=== PATIENT | female | born 1965 | race Caucasian/White ===

== ENCOUNTER → 2017-06-19 | Outpatient (CLI) | payer BC ==
[~2017-06-19] MED LIST: ADVAIR HFA 230M12 GM INH; CLEOCIN HCL150 MG PO; COMBIVENT INH; HYDROCODONE-AP1 EAC6 PO; LIPITOR 20 MG T20 M1 PO; LISINOPRIL20 MG PO; NORCO 5-325 TA1 EACH PO; XARELTO15 MG PO; XARELTO20 MG PO
== END ==
LOC: RAD 10:47
DX: M81.0 Age-related osteoporosis without current pathological fracture (principal); M47.894 Other spondylosis, thoracic region; Z78.0 Asymptomatic menopausal state

== ENCOUNTER → 2017-06-27 | Outpatient (CLI) | payer BC | LOC: ULTRA 06:58 | DX: K80.81 Other cholelithiasis with obstruction (principal) ==

== ENCOUNTER 2017-07-05 05:53 | Inpatient (IN) | payer BC ==
[2017-07-05] VITALS (7 sets, daily range): BP systolic 93–146; BP diastolic 48–87
[~2017-07-05] VITALS: Ht 152.4 cm; Wt 78.9 kg
--- NOTE | ~2017-07-05 | S ---
[facility] [place] [address] SURGICAL PATH RPT PROCEDURE Name: ANNETTE GLYNN Room #: 405-P DIS IN M.R.#: [id number] Admission: 07/05/17 Date of : 67 Discharge: 07/07/17 Report #: [id number] Path Case #: [id number] PATHOLOGY REPORT COLLECTION DATE: 07/05/2017 RECEIVED DATE: 07/05/2017 SUBMITTING PHYS: Dr. Gianluca Ceja OTHER PHYS: Dr. Rasheed Alicia SPECIMEN(S) RECEIVED: A.Gallbladder B.Common bile duct with stone * * * * * * * * * * * * FINAL DIAGNOSIS: A. "Gallbladder," cholecystectomy: - Chronic cholecystitis. - Cholelithiasis. B. "Common bile duct with stone," removal: - Gallbladder calculus (gross examination only). (CLW:; 07/09/2017) PATHOLOGIST: Lois Dobbs M.D. REPORT ELECTRONICALLY SIGNED BY: Lois Dobbs M.D. DATE/TIME: 07/09/2017 15:56 * * * * * * * * * * * * GROSS PATHOLOGY: A. Received in formalin labeled "Annette Glynn, gallbladder," is a 4.6 x 1.5 x 0.8 cm, previously opened gallbladder with pink-nice and smooth serosal surfaces. Opening the gallbladder reveals a green mucosa and an average wall thickness of 0.1 cm. Multiple black and fractured calculi are present measuring 1.9 x 1.4 x 0.5 cm in aggregate dimensions and no masses are noted grossly. Compliance Representative sections from the body and fundus are submitted along with the proximal margin in cassette A1. B. The specimen is received in formalin, labeled "Annette Glynn, common bile duct stone," and consists of a single brown calculus measuring 0.6 x 0.5 x 0.3 cm. Gross photos are taken and no sections are submitted. (SDY; 07/06/2017) CLINICAL HISTORY: Gallstones [facility] [place] [address] SURGICAL PATH RPT PROCEDURE Name: ANNETTE GLYNN Room #: 405-[facility] IN M.R.#: [id number] Admission: 07/05/17 Date of : 67 Discharge: 07/07/17 Report #: [id number] Path Case #: [id number] INITIAL CPT CODE(S): A; 01105, 20972 Professional services performed by [facility] at [address], [place] [address] Technical services performed by [facility] at [address] [place] [address], [facility] [address] [address]. [facility] [address] [place] [address] PHONE: [phone] DIRECTOR: Kumar Wong M.D. * * * END OF REPORT * * *
--- NOTE | ~2017-07-05 | EKG ---
[address] [place] [address] ELECTROCARDIOGRAM REPORT Name: ANNETTE GLYNN Room #: 405-P [facility].#: [id number] Admission: 07/05/17 Attend Phys: Gianluca Ceja MD Discharge: Date of : 67 Report #: [id number] THIS REPORT FOR: //name// [facility] Test Date: 2017-07-05 Test Time: 11:08:44 Pat Name: ANNETTE GLYNN Department: Room: 150 1 Gender: F Wafer Fab Technician: ALEIDA : 1965 Requested By: Gianluca Ceja Order Number: [id number] MD: Christopher Harrison Measurements Intervals Points Rate: 65 P: 93 CT: 176 QRS: 30 QRSD: 94 T: 64 QT: 412 QTc: 429 Interpretive Statements Sinus rhythm Abnormal R-wave progression, early transition Baseline wander in lead(s) V3 No previous ECG available for comparison Electronically Signed On 07-06-2017 8:18:48 PROOF LOAD MECHANIC by Christopher Harrison [email or web address] <ELECTRONICALLY SIGNED> By: Christopher Harrison MD, [facility] 07/06/1718 1108 07 Christopher Harrison MD, FACC /EPI
--- NOTE | ~2017-07-05 | O ---
[facility] [place] [address] OPERATIVE REPORT Name: ANNETTE GLYNN Room #: 405-P [facility] IN M.R.#: [id number] Admission: 07/05/17 Attend Phys: Gianluca Ceja MD Discharge: 07/07/17 Date of : 67 Report #: [id number] THIS REPORT FOR: //name// CC: Gianluca Alicia PREOPERATIVE DIAGNOSES: Cholecystitis with cholelithiasis. POSTOPERATIVE DIAGNOSES: Cholecystitis with cholelithiasis and a common bile duct stone that measured about 1.2 cm. Stone was also found in the cystic duct. PROCEDURES PERFORMED: 1. Laparoscopic cholecystectomy with cholangiogram. 2. Common bile duct exploration with removal of common duct stone. 3. T-tube cholangiogram. 4. Lysis of adhesions. SURGEON: Gianluca Ceja M.D. ANESTHESIA: General anesthesia. COMPLICATIONS: None. ESTIMATED BLOOD LOSS: 5 mL. FINDINGS: There are multiple stones in the cystic duct that were evacuated. On intraoperative cholangiogram through the cystic duct, a common duct stone was found. This was at the bifurcation. The stone was removed through laparoscopic common duct exploration with the T-tube cholangiogram at the end of the exploration did not show any continued defects. The stone was extracted. DESCRIPTION OF PROCEDURE: With the patient under anesthesia, abdomen was prepped and draped in sterile fashion. IV antibiotic was administered. Abdomen prepped and draped in sterile fashion. Timeout was performed. The patient has had multiple surgeries. With the patient's abdomen prepped and draped in sterile fashion, a cutdown incision was made in the right abdomen about an inch or so right of the umbilicus and slightly superior. The patient has had multiple scars from prior surgery, including the transverse right upper quadrant scar and a left paramedian scar. The cutdown was performed and the fascia was identified. The fascia of the anterior rectus sheath was opened. Muscle was spread. The posterior sheath was then identified. A 0 Vicryl suture was placed on the anterior sheath and then on the posterior sheath. The posterior sheath was opened under visualization. The abdominal cavity was free under this. An Origin balloon trocar was then placed. The balloon was inflated keeping the trocar in. CO2 was then placed. The patient did have quite a bit of adhesions to the abdominal wall, cephalad and also to the left of this area. The adhesion of small bowel to the wall was thin and easily dissected free. In the right [address] [address] OPERATIVE REPORT Name: ANNETTE GLYNN Room #: 405-P [facility] IN M.R.#: [id number] Admission: 07/05/17 Attend Phys: Gianluca Ceja MD Discharge: 07/07/17 Date of : 67 Report #: [id number] upper quadrant a scar that was transversely oriented. The transverse colon was fairly densely stuck to this. Some of these were also fatty adhesions. Careful dissection was carried out. Two 5-mm trocars were placed in the right upper abdomen. The more medial 5-mm trocar was placed lower than the typical placement because of the prior scar and the adhesions in that location. Using these 2 instruments, the adhesions were taken down. Cautery was used to divide the adhesions and low scissor and occasional sharp scissor dissection without cautery was performed. Colon was able to be brought down to the degree that the medial 5-mm trocar was placed. Gallbladder was then identified and noted to be contracted as the ultrasound showed. When I followed the gallbladder, the adhesions were taken away from this and when the gallbladder was followed down about a couple of inches, it tapered. I was not sure if this was still gallbladder, but has suspicious feeling that this was probably cystic duct. This contained multiple stones in the cystic duct. Cystic duct was then isolated. It sure enough was the cystic duct. The cystic duct was clipped at the junction to the gallbladder. Opening was made in the cystic duct and multiple helga stones along with several flaky stones and sometime well-formed stones were extracted from the common duct. Most of these were able to be suctioned out and some of them were pulled through the 5-mm trocar. Once the cystic duct was clear, there was bile coming through. Cholangiogram catheter was then placed with a clip. Fluoroscopic cholangiogram was obtained. Common bile duct filled out well. The cholangiogram catheter identified the cystic duct. There was about a 1.2 cm stone at the bifurcation of the hepatic duct. The distal flow was normal. I think the stone was also able to be palpable in this common duct at some point. The cholangiogram catheter was removed. The proximal cystic duct was then clipped x 1 and then divided. This cystic duct was kept together with the gallbladder to help the distraction and show the common duct. We decided to go ahead and explore the common duct. The common duct was isolated and the fat tissue was taken from over the surface of the common duct. The common duct was opened with sharp scissor dissection. Bile came out. Irrigation was then applied to the proximal and also distal opening and I flushed the upper part of stone. A fairly large-sized well-formed stone actually came out. This was placed over the omentum so I could keep an eye on this. The biliary Tawana catheter was then placed. Tawana catheter was used to sweep the upper duct, also through the distal common duct and through the ampulla. No further stone was found. A #14-Omani T-tube was then placed. The T-tube was trimmed to fit. The T-tube was then placed into the common duct exploration site. The T-tube was swept downward and the upper part of the common duct that was above the T-tube was then sewn together with 4-0 PDS with 3 separate sutures. This created a good seal around the T-tube. I did not see any bile leak out. The T-tube was brought out through the medial 5-mm trocar. Erwin tree adapter was placed on this. Fluoroscopic T-tube cholangiogram was obtained. Common bile duct filled out well. I did not see any further defect consistent with extraction of the stone. The cystic duct was then clipped with 2 more clips and then divided. The clips did go all the way across the cystic duct. The artery was then found adjacent. This was also clipped x [address] [address] OPERATIVE REPORT Name: ANNETTE GLYNN Room #: 405-P [facility] IN M.R.#: [id number] Admission: 07/05/17 Attend Phys: Gianluca Ceja MD Discharge: 07/07/17 Date of : 67 Report #: [id number] proximally and 1 distally and then divided. The gallbladder was quite shrunken. This is easily removed. The stone was extracted and then was removed from the common duct. They did come out in pieces and it was able to be crushed. The gallbladder was then removed through the Origin balloon trocar without difficulty. Irrigation was performed. Liver bed was checked and hemostasis was obtained. A #19 Jonathan drain was then placed through the lateral 5-mm trocar, brought out through the lateral 5 mm trocar. was placed in Morison's pouch. The medial trocar and the Origin balloon trocar were then removed. The T-tube and the REJI drain were tied with a 2-0 silk suture. The fascia defect at the cutdown site was closed with 0 PDS [id number] x 2 in the posterior sheath and then the anterior sheath with 0 PDS [id number] x 2. Skin was irrigated. Skin was then closed with 5-0 PDS. Steri-Strip and Band-Aids applied. A 4 x 4 was placed around the T-tube and the drain site and a medium Op-Site was used to cover and seal both the tubes in place. The patient tolerated the procedure well and was taken to recovery room. <ELECTRONICALLY SIGNED> By: Gianluca Ceja MD 07/27/17 1426 [id number] 2318 Gianluca Ceja MD /nt
[~2017-07-05 05:53] MED LIST changes: -ADVAIR HFA 230M12 GM INH; -CLEOCIN HCL150 MG PO; -COMBIVENT INH; -HYDROCODONE-AP1 EAC6 PO; -NORCO 5-325 TA1 EACH PO; -XARELTO15 MG PO; -XARELTO20 MG PO
[2017-07-06] VITALS: BP 120/50
[2017-07-06 04:00] VITALS: BP 114/75
[2017-07-06 06:35] LABS: ALBUMIN 2.8 g/dL (3.4-5.0); DIRECT BILIRUBIN < 0.1 mg/dL (<0.1-0.3); SGOT 28 U/L (15-37); SGPT 33 U/L (30-65); TOTAL BILIRUBIN 0.4 mg/dL (<0.1-1.0)
[2017-07-06 07:52] VITALS: BP 127/65
[2017-07-06 16:03] VITALS: BP 126/72
[2017-07-06 20:00] VITALS: BP 127/53
[2017-07-07 04:00] VITALS: BP 150/70
[2017-07-07 09:39] VITALS: BP 159/74
[2017-07-07] MEDS ORDERED: NORCO 5-325 TA1 EACH PO (11:35)
[2017-07-07 13:52] VITALS: BP 159/74
[2017-10-29] MEDS ORDERED: HYDROCODONE-AP1 EAC6 PO (15:52)
[2018-01-30] MEDS ORDERED: XARELTO15 MG PO (12:18)
[2018-02-19] MEDS ORDERED: XARELTO20 MG PO (13:07)
== END 2017-07-07 15:10 | disposition home or self-care (01) | DRG 419 ==
LOC: TBA 05:53 → OR 05:53 → TBA 05:54 → OR 08:53 → 4N 15:08 → TBA 15:55 → 4N 15:55 → OR 15:56 → 4N 15:56
PROVIDERS: Surgery
PROC: 0FC94ZZ Extirpation of Matter from Common Bile Duct, Percutaneous Endoscopic Approach (ICD-10-PCS; principal; 2017-07-05)
PROC: 0FT44ZZ Resection of Gallbladder, Percutaneous Endoscopic Approach (ICD-10-PCS; principal; 2017-07-05)
PROC: BF131ZZ Fluoroscopy of Gallbladder and Bile Ducts using Low Osmolar Contrast (ICD-10-PCS; principal; 2017-07-05)
DX: K80.60 Calculus of gallbladder and bile duct with cholecystitis, unspecified, without obstruction (principal)
CPT/HCPCS: 10790; 50010; 50101; 50411; 50555; 50558; 51165; 51297; 51489; 51687; 53065; 53307; 53310; 55245; 55317; 56462; 56525; 56526; 62110; 62900; 70005

== ENCOUNTER → 2017-08-07 | Outpatient (CLI) | payer BC ==
[~2017-08-07] VITALS: Ht 152.4 cm; Wt 77.1 kg
[~2017-08-07] MED LIST changes: +NORCO 5-325 TA1 EACH PO
[2017-08-07 13:26] VITALS: BP 133/69
== END | disposition home or self-care (01) ==
LOC: SPEC 11:47
DX: Z48.03 Encounter for change or removal of drains (principal)

== ENCOUNTER → 2017-09-04 | Outpatient (CLI) | payer BC | LOC: ULTRA 13:05 | DX: R10.11 Right upper quadrant pain (principal); Z90.49 Acquired absence of other specified parts of digestive tract ==

== ENCOUNTER 2017-10-28 12:52 | Emergency (ER) | payer BC ==
[~2017-10-28] VITALS: Ht 149.9 cm; Wt 74.8 kg
[2017-10-28] MEDS ORDERED: ADVAIR HFA 230M12 GM INH (13:14)
[2017-10-28] MEDS ORDERED: COMBIVENT INH (13:14)
[2017-10-28 13:36] LABS: ABSOLUTE NEUTROPHILS 7.5 thou/uL (1.4-8.2); BASOPHILS 0.4 % (0.0-2.0); EOSINOPHILS 1.6 % (0.0-3.0); HEMATOCRIT 40.1 % (37.0-47.0); HEMOGLOBIN 13.3 gm/dL (12.0-15.0); LYMPHOCYTES 14.3 % (24.0-44.0); MCH 28.2 pg (26.0-34.0); MCHC 33.2 g/dL (28.0-37.0); MCV 84.8 fL (80.0-100.0); MONOCYTES 8.5 % (1.0-8.0); PLATELET COUNT 294 thou/uL (150-400); POLYS 75.2 % (36.0-66.0); RBC 4.73 mil/uL (4.20-5.00); RDW 15.4 % (10.5-14.5)
[2017-10-28 14:56] LABS: ALBUMIN 2.9 g/dL (3.4-5.0); ANION GAP 6 mmol/L (7-16); BUN 5 mg/dL (7-18); CALCIUM 8.8 mg/dL (8.5-10.1); CHLORIDE 106 mmol/L (98-107); CO2 27 mmol/L (21-32); CREATININE 0.7 mg/dL (0.6-1.0); GLUCOSE 95 mg/dL (74-106); LIPASE 49 U/L (73-393); POTASSIUM 3.6 mmol/L (3.5-5.1); SGOT 14 U/L (15-37); SGPT 17 U/L (30-65); SODIUM 139 mmol/L (136-145); TOTAL BILIRUBIN 0.5 mg/dL (<0.1-1.0); TOTAL PROTEIN 6.6 g/dL (6.4-8.2); TROPONIN-I < 0.04 ng/mL (<0.06)
[2017-10-28] MEDS ORDERED: CLEOCIN HCL150 MG PO (16:11)
[2017-10-29] MEDS ORDERED: HYDROCODONE-AP1 EAC6 PO (15:52)
== END 2017-10-28 16:51 | disposition home or self-care (01) ==
LOC: ER 12:52
PROVIDERS: Emergency Medicine
DX: L03.311 Cellulitis of abdominal wall (principal); R11.0 Nausea; I10 Essential (primary) hypertension; E78.00 Pure hypercholesterolemia, unspecified; F17.210 Nicotine dependence, cigarettes, uncomplicated; Z90.89 Acquired absence of other organs; Z88.0 Allergy status to penicillin

== ENCOUNTER 2017-10-30 05:29 | Inpatient (IN) | payer BC ==
[~2017-10-30] VITALS: Ht 149.9 cm; Wt 67.1 kg
--- NOTE | ~2017-10-30 | O ---
[facility] [place] [address] OPERATIVE REPORT Name: ANNETTE GLYNN Room #: 227-P [facility] IN M.R.#: [id number] Admission: 10/30/17 Attend Phys: Gianluca Ceja MD Discharge: 11/02/17 Date of : 67 Report #: [id number] THIS REPORT FOR: //name// CC: Gianluca Alicia MD DATE OF SERVICE: 10/30/2017 PREOPERATIVE DIAGNOSIS: Abscess in the right upper quadrant along an old incision. POSTOPERATIVE DIAGNOSIS: Finding consistent with a colocutaneous fistula. PROCEDURES PERFORMED: Fistulogram, wound exploration, closure of colocutaneous fistula. ANESTHESIA: General. SURGEON: Gianluca Ceja MD. COMPLICATIONS: None. ESTIMATED BLOOD LOSS: 5 mL. DESCRIPTION OF PROCEDURE: With the abdomen prepped with Betadine, timeout was performed. The patient did receive preoperative IV antibiotic of vancomycin and also Flagyl. The patient had a wound that opened up during the night and medial to this area, there is also a centimeter half of necrotic skin. The output looks stool like. The interesting thing is that the patient underwent laparoscopic cholecystectomy now almost 4 months ago. There is scar in the right upper quadrant, which did have the transverse colon stuck on top of it. The adhesions were taken down. At that point, no harm was felt to have happened to the colon. It is interesting that now the patient presents with this infection so far out. The abdomen was prepped and draped in sterile fashion. A 14 gauge Jelco catheter was placed through the small opening. Dye was injected. Despite using multiple angles, I do not see a travel into the colon. There is a subcutaneous pocket that is about 3 cm in size. There was quite a bit of contrast that seeped down through the necrotic skin and also traveling along the Jelco catheter. The fistulogram was then abandoned. Ellipse was then cut around the opening that is 3 mm and then also the necrotic skin. The culture was obtained. Again, the drainage is foul smelling and looked stool like. The necrotic wall along the base along the sides was trimmed off and when I looked at the base of this opening, I could see mucosa which looks like it is from the colon. Hemostat was able to be put in through this and quite a bit of the hemostat went in. This is consistent with colocutaneous fistula. I am not [facility] [address] [place] [address] OPERATIVE REPORT Name: ANNETTE GLYNN Room #: 227-P [facility] IN M.R.#: [id number] Admission: 10/30/17 Attend Phys: Gianluca Ceja MD Discharge: 11/02/17 Date of : 67 Report #: [id number] quite sure what the etiology or why it formed, suspect there may have been issue with the colon during the laparoscopic lysis of adhesion, but I do not know why it took so long to manifest. The difficulty with treating of this is that this probably will close since it is a very low output. I decided to try and close what I can see as a mucosa. This was closed with 4-0 PDS in interrupted fashion x 3. The opening in the mucosa looks like it is about a centimeter in size. This came together well and with gentle hemostat, I did not find any weakness or opening. Over this, Tisseel was mixed and placed over this closure. Again, I am not sure if this is going to hold. The other option is to put a colostomy bag over this and let it drain. The possibility of finding this was discussed with the patient prior to procedure. I think keeping her on clear liquid diet and IV fluids for a while hopefully will close off. The closure and Tisseel hopefully will work also. A dry light gauze was placed over the opening, 4 x 4 tape was applied. The patient tolerated the procedure well and was taken to the recovery room. The patient will be admitted for IV antibiotic treatment since there is some surrounding cellulitis, but the wound looked clean at the end of the procedure. The patient tolerated procedure well. <ELECTRONICALLY SIGNED> By: Gianluca Ceja MD 11/04/17 1105 2225 Gianluca Ceja MD /nt
[~2017-10-30 05:29] MED LIST changes: +ADVAIR HFA 230M12 GM INH; +CLEOCIN HCL150 MG PO; +COMBIVENT INH; +HYDROCODONE-AP1 EAC6 PO
[2017-10-30 12:12] VITALS: BP 95/50
[2017-10-30 18:45] VITALS: BP 108/62
[2017-10-31 03:55] VITALS: BP 119/58
[2017-10-31 08:00] VITALS: BP 95/59
[2017-10-31 16:00] VITALS: BP 112/67
[2017-10-31 17:00] VITALS: BP 113/58
[2017-10-31 19:57] VITALS: BP 133/68
[2017-11-01 07:24] LABS: HEMATOCRIT 36.1 % (37.0-47.0); HEMOGLOBIN 12.1 gm/dL (12.0-15.0); MCHC 33.4 g/dL (28.0-37.0); MCV 83.8 fL (80.0-100.0); RBC 4.31 mil/uL (4.20-5.00); RDW 14.9 % (10.5-14.5); WBC 6.7 thou/uL (4.0-11.0)
[2017-11-01 07:42] LABS: CREATININE 0.7 mg/dL (0.6-1.0)
[2017-11-01 08:45] VITALS: BP 118/65
[2017-11-01 20:09] VITALS: BP 129/75
[2017-11-02 08:52] VITALS: BP 144/79
[2017-11-02 12:24] VITALS: BP 144/79
== END 2017-11-02 17:49 | disposition home health service (06) | DRG 358 ==
LOC: OR 05:29 → TBA 05:29 → PRE 11:34 → EDSTATUS 15:34 → OR 15:41 → 4W 18:32 → OR 18:33 → SICU 10-31 16:41 → ENTRNSPT 11-02 17:31 → SICU 11-02 17:49
PROVIDERS: Surgery
PROC: 3E0H3GC Introduction of Other Therapeutic Substance into Lower GI, Percutaneous Approach (ICD-10-PCS; principal; 2017-10-30)
PROC: 0W9F0ZZ Drainage of Abdominal Wall, Open Approach (ICD-10-PCS; principal; 2017-10-30)
DX: K63.2 Fistula of intestine (principal); J44.9 Chronic obstructive pulmonary disease, unspecified; I10 Essential (primary) hypertension; E78.5 Hyperlipidemia, unspecified; Z79.899 Other long term (current) drug therapy; Z88.0 Allergy status to penicillin; Z87.891 Personal history of nicotine dependence
CPT/HCPCS: 10047; 15002; 50010; 50101; 50386; 50403; 51436; 56525; 56527; 62110; 62900; 70005

== ENCOUNTER 2017-12-05 14:50 | Inpatient (IN) | payer BC ==
[2017-12-05] VITALS (7 sets, daily range): BP systolic 94–127; BP diastolic 42–73
[~2017-12-05] VITALS: Ht 152.4 cm; Wt 68.4 kg
--- NOTE | ~2017-12-05 | HC ---
[facility] [place] [address] CONSULTATION Name: ANNETTE GLYNN Room #: 360-P ADM IN M.R.#: [id number] Admission: 12/05/17 Attend Phys: Perfecto Mcpherson Discharge: Date of : 67 Report #: [id number] THIS REPORT FOR: //name// CC: Perfecto Alicia DATE OF SERVICE: 12/06/2017 REASON FOR CONSULTATION: I was asked to evaluate concerning colocutaneous fistula management and antibiotic therapy. HISTORY OF PRESENT ILLNESS: The patient was a 52-year-old who underwent laparoscopic cholecystectomy on 07/05 for cholecystitis and cholelithiasis with a common bile duct stone. It was evident that she had significant amount of adhesions at the time of surgery. These were taken down with no intraoperative complications. She had a T-tube placed. This was ultimately removed. In first week of October, she started having pain in her right upper quadrant and an area of erythema and spontaneous drainage occurred. She was taken to the operating room by Dr. Ceja who found a colocutaneous fistula that was in the same area of her previous incision from when she was a child. That incision was to manipulate a displaced kidney. Attempted closure of colocutaneous fistula was performed. This failed, and she began to drain again from the site. She was placed on TPN. Over the last several days, she has noticed increased discomfort along with fever and chills. She has had mild discomfort in the right upper quadrant. She has had normal stools. She has been receiving TPN in the right upper extremity PICC. On presentation to the Emergency Room, temperature was 39.4, hemodynamically was stable. The pulse was 109 and blood pressure is 99/59. She was hospitalized, placed on IV antibiotic therapy. Subsequently, her PICC line has been removed. Plan is for further surgical intervention. PAST MEDICAL HISTORY: Hypertension, hyperlipidemia, Hirschsprung disease with megacolon: She had a colostomy with a subsequent takedown as an infant. 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 Underlying COPD, on oxygen 2 liters. Smoker of cigarettes. She had previous oral surgery with extractions, has upper denture, previous cholecystectomy. ALLERGIES: PENICILLIN. MEDICATIONS: Atorvastatin, lisinopril, TPN. FAMILY HISTORY: Noncontributory. SOCIAL HISTORY: Smoker of cigarettes. No significant alcohol intake. No HIV risk factors. REVIEW OF SYSTEMS: [facility] [address] [place] [address] CONSULTATION Name: ANNETTE GLYNN Room #: 360-P [facility] IN .R.#: [id number] Admission: 12/05/17 Attend Phys: Perfecto Mcpherson Discharge: Date of : 67 Report #: [id number] GENERAL: The patient has lost approximately 20 pounds. EYES: Negative. HEENT: Negative other than dentures. PULMONARY: Negative. CARDIAC: Negative for cough or sputum production. No dyspnea on exertion. CARDIOVASCULAR: Negative. GASTROINTESTINAL: As above. GENITOURINARY: Negative. MUSCULOSKELETAL: Negative. SKIN: Negative. NEUROLOGIC: Negative. PHYSICAL EXAMINATION: VITAL SIGNS: Afebrile and hemodynamically stable. Her maximum temperature is 103.5 degrees last evening. SKIN: She has excoriations to her forehead. LYMPH: Unremarkable. GENERAL: She was obese. She was alert and cooperative and pleasant, in no distress. HEENT: Eyes unremarkable. Mouth, dentures, otherwise unremarkable. NECK: Supple, with no thyromegaly or mass. Pulses were normal. LUNGS: Clear, without adventitial sounds. HEART: Regular, without murmur, gallop or rub. ABDOMEN: Soft. She had a fistula evident in the right upper quadrant. Mild surrounding erythema. Mild tenderness. There is fullness in this region. She had several scars throughout her abdomen. PELVIC: External genitalia unremarkable. EXTREMITIES: Unremarkable. NEUROLOGIC: Nonfocal. LABORATORY STUDIES: Sodium 133, potassium 3.7, bicarbonate 22, creatinine 0.8, lipase of 69. Liver function test normal. Albumin 2.8. Hemoglobin 11.3, WBC 8.2, platelet count 168,000. Urinalysis unremarkable. Blood culture /2 showing gram-positive cocci, drainage from the abdominal tract is currently pending. Previous culture from her abdominal wound from 10/30/2017 showed E. coli, Klebsiella and Bacteroides. The E. coli and Klebsiella resistant to ampicillin. The E. coli was also resistant to tetracycline. CT scan of the abdomen and pelvis showed evidence of increased edema around the fistula site in the upper quadrant. There is question whether there is a fluid collection also inferior to this. Images were reviewed. 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 This failed initial closure procedure. Now has increased swelling in the region of decreased fistula output. Also, has high fever. Whether it is related to this or to [facility] [address] [place] [address] CONSULTATION Name: ANNETTE GLYNN Room #: 360-P [facility] IN M.R.#: [id number] Admission: 12/05/17 Attend Phys: Perfecto Mcpherson Discharge: Date of : 67 Report #: [id number] venous access infection that was being used for TPN is not yet determined. RECOMMENDATION: We will continue IV antibiotic therapy with meropenem and vancomycin. We will await culture results from blood and wound. THE PATIENT HAS AN INTOLERANCE TO PENICILLIN. To proceed for surgical intervention with a diverting ileostomy and debridement of this area. Hopefully, with this, she will be able to heal this region. I have discussed the case with Dr. Ceja who will be performing the surgical intervention. We will remove her PICC catheter and await blood culture results. Continue with peripheral IV access at this time. Duration of her IV antibiotic therapy will be dependent upon findings at the time of surgery. We will follow her CBC and chemistry. <ELECTRONICALLY SIGNED> By: Doyle Marcos MD 12/07/17 1135 1244 1330 Doyle Marcos MD /nt
--- NOTE | ~2017-12-05 | O ---
[facility] [place] [address] OPERATIVE REPORT Name: ANNETTE GLYNN Room #: 360-P ADM IN M.R.#: [id number] Admission: 12/05/17 Attend Phys: Perfecto Mcpherson Discharge: Date of : 67 Report #: [id number] THIS REPORT FOR: //name// CC: Perfecto Alicia DATE OF SERVICE: 12/08/2017 PREOPERATIVE DIAGNOSIS: Persistent colocutaneous fistula. POSTOPERATIVE DIAGNOSIS: Persistent colocutaneous fistula. PROCEDURE PERFORMED: Diagnostic laparoscopy, laparoscopic assisted ileostomy. COMPLICATIONS: None. ESTIMATED BLOOD LOSS: 5 mL. SURGEON: Gianluca Ceja MD. COMPLICATIONS: None. DESCRIPTION OF PROCEDURE: With the patient under general anesthesia, abdomen was prepped and draped in sterile fashion with Betadine. A 4 x 4 and Op-Site was placed over the fistula site. The patient had been premarked by the ostomy nurse. This actually was directly over her umbilicus, which is shifted over to the right. A small incision was made just slightly lateral to the marking. An ellipse of the skin was then excised since it is going to be a loop ileostomy. Fat was then dissected free and removed. The fascia was identified. Fascia was then opened under visualization. The anterior fascia was opened, 0 Vicryl suture placed on it. The muscle was spread. The posterior fascia was then identified and opened. Again, stay suture of 0 Vicryl placed on the posterior fascia. I can see through the peritoneum that this was free space. A 12-mm trocar with a balloon on it was placed. Abdominal cavity was insufflated by CO2. A 5-mm trocar was placed in the lateral right abdomen. I can see the side of the right upper quadrant, but it is covered by omental adhesions. There are small bowel adhesions also scattered. The area where I entered is free. It takes more dissection to get to the actual colon site. The previous gallbladder bed has some adhesions and looks fine. The cecum was identified. The appendix was visualized. The terminal ileum was then followed. The TI is attached to the right lower quadrant, but about 6-8 inches proximal, the bowel is free. This bowel is identified. A blunt grasper is placed on the omentum of this bowel. This was able to be pulled over to the 12-mm trocar. A 5-mm camera was then placed. A 5-mm port allowed the bowel to be brought out through the 12-mm trocar site. Once I got it through the wall, the [place] was used to grab this bowel. I was then able to, with the stay sutures, open the anterior rectus [address] [address] OPERATIVE REPORT Name: ANNETTE GLYNN Room #: 360-P ADM IN M.R.#: [id number] Admission: 12/05/17 Attend Phys: Perfecto Mcpherson Discharge: Date of : 67 Report #: [id number] sheath up and down in a cruciate manner superiorly and also inferiorly. Then, I was able to use the posterior stay suture and opened up the posterior sheath. Once this was done, the patient had adequate room for the ileostomy. The ostomy came up to the surface easily without any tension. The mesentery was then freed from the bowel adjacent to the bowel. Cautery was used for hemostasis. A butterfly type ostomy bridge was placed under the loop ileostomy. The bridge was sewn with a 3-0 nylon suture. The OpSite was then taken off the fistula area. I did open this and allow further drainage. There is still some stool material here. A suction was placed inside this area and I believe after about 1.5 cm goes into the colon, I believe. This was irrigated and cleaned out. After suctioning, then there is no further output from this. The skin was then protected by OpSite surrounding the opening, 4 x 4 wet to dry was packed into the wound and then, a dry gauze was placed over this and taped in place. The ileostomy was then matured. I matured it towards the proximal end by making about 1.5 cm incision in the bowel wall. Cautery used for hemostasis. The 4-0 Vicryl was then used to sow the mucosa open. Ostomy bag was placed over this. The patient tolerated the procedure well. She was taken to recovery room in good condition. <ELECTRONICALLY SIGNED> By: Gianluca Ceja MD 12/11/17 1624 1143 1319 Gianluca Ceja MD /nt
[2017-12-05 15:52] LABS: ABSOLUTE NEUTROPHILS 7.6 thou/uL (1.4-8.2); BASOPHILS 0.5 % (0.0-2.0); EOSINOPHILS 0.2 % (0.0-3.0); HEMATOCRIT 37.5 % (37.0-47.0); HEMOGLOBIN 12.8 gm/dL (12.0-15.0); LYMPHOCYTES 7.5 % (24.0-44.0); MCH 28.1 pg (26.0-34.0); MCV 82.8 fL (80.0-100.0); MONOCYTES 5.7 % (1.0-8.0); PLATELET COUNT 197 thou/uL (150-400); POLYS 86.1 % (36.0-66.0); RBC 4.53 mil/uL (4.20-5.00); RDW 14.3 % (10.5-14.5); WBC 8.8 thou/uL (4.0-11.0)
[2017-12-05 16:04] LABS: CALCIUM 8.7 mg/dL (8.5-10.1)
[2017-12-05 16:09] LABS: ALBUMIN 2.8 g/dL (3.4-5.0); TOTAL BILIRUBIN 0.3 mg/dL (<0.1-1.0)
[2017-12-05 16:31] LABS: URINE BILIRUBIN NEGATIVE (Negative); URINE BLOOD NEGATIVE (Negative); URINE CLARITY CLEAR; URINE COLOR YELLOW; URINE GLUCOSE-RANDOM* NEGATIVE (Negative); URINE KETONES NEGATIVE (Negative); URINE LEUKOCYTES-REFLEX NEGATIVE (Negative); URINE NITRITE-REFLEX NEGATIVE (Negative); URINE PROTEIN (DIPSTICK) NEGATIVE (Negative); URINE UROBILINOGEN 0.2 E.U./dl (0.2-1.0)
[2017-12-06 03:42] VITALS: BP 118/78
[2017-12-06 08:22] VITALS: BP 88/51
[2017-12-06 09:07] LABS: CALCIUM 7.9 mg/dL (8.5-10.1); CREATININE 0.8 mg/dL (0.6-1.0); POTASSIUM 3.7 mmol/L (3.5-5.1)
[2017-12-06 09:10] LABS: MAGNESIUM 1.3 mg/dL (1.8-2.4)
[2017-12-06 09:19] LABS: HEMATOCRIT 33.4 % (37.0-47.0); HEMOGLOBIN 11.3 gm/dL (12.0-15.0); MCH 28.2 pg (26.0-34.0); MCHC 33.8 g/dL (28.0-37.0); MCV 83.3 fL (80.0-100.0); RBC 4.01 mil/uL (4.20-5.00); RDW 14.5 % (10.5-14.5); WBC 8.2 thou/uL (4.0-11.0)
[2017-12-06 16:45] VITALS: BP 95/57
[2017-12-06 19:11] VITALS: BP 103/54
[2017-12-06 21:10] LABS: GLYCOHEMOGLOBIN (HGB A1C) 5.8 % (4.8-5.6)
[2017-12-07 04:34] VITALS: BP 105/61
[2017-12-07 07:05] LABS: CALCIUM 7.7 mg/dL (8.5-10.1); CREATININE 0.7 mg/dL (0.6-1.0); MAGNESIUM 1.3 mg/dL (1.8-2.4); PHOSPHORUS 2.5 mg/dL (2.5-4.9); POTASSIUM 3.2 mmol/L (3.5-5.1)
[2017-12-07 07:21] VITALS: BP 91/59
[2017-12-07 11:41] VITALS: BP 92/65
[2017-12-07 19:30] VITALS: BP 106/57
[2017-12-08] VITALS (7 sets, daily range): BP systolic 88–145; BP diastolic 40–765
[2017-12-08 06:25] LABS: ALBUMIN 2.2 g/dL (3.4-5.0); CALCIUM 8.3 mg/dL (8.5-10.1); CREATININE 0.6 mg/dL (0.6-1.0); POTASSIUM 3.4 mmol/L (3.5-5.1); TOTAL BILIRUBIN 0.2 mg/dL (<0.1-1.0); TOTAL PROTEIN 5.8 g/dL (6.4-8.2)
[2017-12-08 06:37] LABS: MAGNESIUM 2.5 mg/dL (1.8-2.4)
[2017-12-09 00:30] VITALS: BP 101/61
[2017-12-09 05:25] VITALS: BP 94/54
[2017-12-09 05:55] LABS: HEMATOCRIT 32.9 % (37.0-47.0); HEMOGLOBIN 11.1 gm/dL (12.0-15.0); MCHC 33.7 g/dL (28.0-37.0); RBC 3.96 mil/uL (4.20-5.00); RDW 14.5 % (10.5-14.5); WBC 5.8 thou/uL (4.0-11.0)
[2017-12-09 06:10] LABS: CALCIUM 8.3 mg/dL (8.5-10.1); CREATININE 0.6 mg/dL (0.6-1.0)
[2017-12-09 06:11] LABS: POTASSIUM 4.4 mmol/L (3.5-5.1)
[2017-12-09 06:13] LABS: MAGNESIUM 1.8 mg/dL (1.8-2.4); PHOSPHORUS 3.7 mg/dL (2.5-4.9)
[2017-12-09 07:15] VITALS: BP 88/51
[2017-12-09 17:41] VITALS: BP 129/90
[2017-12-09 19:40] VITALS: BP 100/62
[2017-12-10 04:15] VITALS: BP 136/71
[2017-12-10 07:43] VITALS: BP 147/92
[2017-12-10 09:37] VITALS: BP 144/96
[2017-12-10 09:55] LABS: RDW 15.3 % (10.5-14.5)
[2017-12-10 09:58] LABS: HEMATOCRIT 36.8 % (37.0-47.0); HEMOGLOBIN 12.3 gm/dL (12.0-15.0); MCH 27.8 pg (26.0-34.0); MCHC 33.5 g/dL (28.0-37.0); RBC 4.44 mil/uL (4.20-5.00); WBC 11.7 thou/uL (4.0-11.0)
[2017-12-10 10:08] LABS: ALBUMIN 2.4 g/dL (3.4-5.0); CALCIUM 8.7 mg/dL (8.5-10.1); CREATININE 0.8 mg/dL (0.6-1.0); POTASSIUM 3.8 mmol/L (3.5-5.1); TOTAL BILIRUBIN 0.3 mg/dL (<0.1-1.0); TOTAL PROTEIN 6.2 g/dL (6.4-8.2)
[2017-12-10 12:30] VITALS: BP 140/98
[2017-12-10 17:35] VITALS: BP 132/96
[2017-12-10 19:20] VITALS: BP 123/83
[2017-12-11 03:10] VITALS: BP 117/84
[2017-12-11 05:36] LABS: HEMATOCRIT 36.3 % (37.0-47.0); HEMOGLOBIN 12.1 gm/dL (12.0-15.0); MCH 27.8 pg (26.0-34.0); MCHC 33.4 g/dL (28.0-37.0); MCV 83.3 fL (80.0-100.0); RBC 4.35 mil/uL (4.20-5.00); RDW 14.9 % (10.5-14.5); WBC 11.3 thou/uL (4.0-11.0)
[2017-12-11 05:48] LABS: CALCIUM 7.9 mg/dL (8.5-10.1); CREATININE 0.7 mg/dL (0.6-1.0); POTASSIUM 3.4 mmol/L (3.5-5.1)
[2017-12-11 07:49] VITALS: BP 138/84
[2017-12-11 11:16] VITALS: BP 121/75
[2017-12-11 15:31] VITALS: BP 126/80
[2017-12-11 19:55] VITALS: BP 132/75
[2017-12-12 04:15] VITALS: BP 146/86
[2017-12-12 06:04] LABS: CALCIUM 8.4 mg/dL (8.5-10.1); CREATININE 0.7 mg/dL (0.6-1.0); POTASSIUM 3.4 mmol/L (3.5-5.1)
[2017-12-12 06:09] LABS: HEMATOCRIT 34.7 % (37.0-47.0); HEMOGLOBIN 11.8 gm/dL (12.0-15.0); MCH 28.1 pg (26.0-34.0); MCHC 33.9 g/dL (28.0-37.0); RBC 4.18 mil/uL (4.20-5.00); RDW 15.1 % (10.5-14.5); WBC 8.8 thou/uL (4.0-11.0)
[2017-12-12 07:47] VITALS: BP 141/84
[2017-12-12 10:49] LABS: MAGNESIUM 1.4 mg/dL (1.8-2.4); PHOSPHORUS 3.9 mg/dL (2.5-4.9)
[2017-12-12 16:03] VITALS: BP 146/92
[2017-12-12 19:09] VITALS: BP 146/82
[2017-12-12 20:27] LABS: MAGNESIUM 1.7 mg/dL (1.8-2.4); POTASSIUM 3.5 mmol/L (3.5-5.1)
[2017-12-13 03:59] VITALS: BP 132/76
[2017-12-13 06:51] LABS: HEMATOCRIT 33.9 % (37.0-47.0); HEMOGLOBIN 11.5 gm/dL (12.0-15.0); MCH 28.2 pg (26.0-34.0); MCHC 33.9 g/dL (28.0-37.0); MCV 83.2 fL (80.0-100.0); RBC 4.07 mil/uL (4.20-5.00); RDW 14.6 % (10.5-14.5); WBC 10.7 thou/uL (4.0-11.0)
[2017-12-13 07:04] LABS: ALBUMIN 2.3 g/dL (3.4-5.0); CALCIUM 8.3 mg/dL (8.5-10.1); CREATININE 0.6 mg/dL (0.6-1.0); MAGNESIUM 1.7 mg/dL (1.8-2.4); POTASSIUM 3.7 mmol/L (3.5-5.1); TOTAL BILIRUBIN 0.5 mg/dL (<0.1-1.0); TOTAL PROTEIN 5.4 g/dL (6.4-8.2)
[2017-12-13 07:05] LABS: PHOSPHORUS 4.3 mg/dL (2.5-4.9)
[2017-12-13 07:41] VITALS: BP 141/87
[2017-12-13 11:29] VITALS: BP 130/80
[2017-12-13 15:43] VITALS: BP 139/85
[2017-12-13 19:40] VITALS: BP 151/91
[2017-12-14 05:40] VITALS: BP 129/80
[2017-12-14 07:22] LABS: CALCIUM 8.8 mg/dL (8.5-10.1); CREATININE 0.6 mg/dL (0.6-1.0); MAGNESIUM 1.9 mg/dL (1.8-2.4)
[2017-12-14 08:06] VITALS: BP 145/85
[2017-12-14 16:27] VITALS: BP 134/83
[2017-12-14 19:30] VITALS: BP 138/91
[2017-12-15 05:30] VITALS: BP 138/67
[2017-12-15 06:21] LABS: CALCIUM 8.9 mg/dL (8.5-10.1); CREATININE 0.6 mg/dL (0.6-1.0); PHOSPHORUS 3.8 mg/dL (2.5-4.9); POTASSIUM 4.2 mmol/L (3.5-5.1)
[2017-12-15 07:33] VITALS: BP 128/80
[2017-12-15 11:05] VITALS: BP 132/79
[2017-12-15 16:39] VITALS: BP 113/77
[2017-12-16 07:25] VITALS: BP 97/62
[2017-12-16 08:49] LABS: CALCIUM 8.9 mg/dL (8.5-10.1); CREATININE 0.7 mg/dL (0.6-1.0); POTASSIUM 4.1 mmol/L (3.5-5.1)
[2017-12-16 19:07] VITALS: BP 108/67
[2017-12-17 08:10] VITALS: BP 90/60
[2017-12-18 07:20] VITALS: BP 106/76
[2017-12-18] MEDS ORDERED: HYDROCODONE-AP1 EAC6 PO (12:33)
[2017-12-18 12:47] VITALS: BP 106/76
[2017-12-18 14:59] VITALS: BP 106/76
== END 2017-12-18 15:02 | disposition home health service (06) | DRG 329 ==
LOC: ER 14:50 → EROBS 17:34 → 3W 17:34 → SICU 12-15 16:43 → ENTRNSPT 12-18 14:49 → EDTRNSPTSTS 12-18 14:51 → SICU 12-18 15:02
PROVIDERS: Hospitalist; Internal Medicine Interventional Cardiology; Physician Assistant; Surgery
PROC: 02HV33Z Insertion of Infusion Device into Superior Vena Cava, Percutaneous Approach (ICD-10-PCS; principal; 2017-12-06)
PROC: 3E0436Z Introduction of Nutritional Substance into Central Vein, Percutaneous Approach (ICD-10-PCS; 2017-12-11)
PROC: 0D1B4Z4 Bypass Ileum to Cutaneous, Percutaneous Endoscopic Approach (ICD-10-PCS; 2017-12-11)
PROC: 0D9670Z Drainage of Stomach with Drainage Device, Via Natural or Artificial Opening (ICD-10-PCS; 2017-12-11)
DX: K94.02 Colostomy infection (principal); A41.9 Sepsis, unspecified organism; E43 Unspecified severe protein-calorie malnutrition; T80.211A Bloodstream infection due to central venous catheter, initial encounter; K63.2 Fistula of intestine; L03.311 Cellulitis of abdominal wall; K56.690 Other partial intestinal obstruction; I10 Essential (primary) hypertension; E78.5 Hyperlipidemia, unspecified; J44.9 Chronic obstructive pulmonary disease, unspecified; F17.210 Nicotine dependence, cigarettes, uncomplicated; Y83.3 Surgical operation with formation of external stoma as the cause of abnormal reaction of the patient, or of later complication, without mention of misadventure at the time of the procedure; E74.39 Other disorders of intestinal carbohydrate absorption; Y92.89 Other specified places as the place of occurrence of the external cause; Z99.81 Dependence on supplemental oxygen; Z68.29 Body mass index [BMI] 29.0-29.9, adult; Z90.49 Acquired absence of other specified parts of digestive tract; Z79.899 Other long term (current) drug therapy; Z88.0 Allergy status to penicillin
CPT/HCPCS: 10879; 15001; 50101; 50249; 50411; 50555; 50558; 50944; 53307; 53310; 56462; 56524; 56525; 56526; 56527; 56528; 62110; 62900; 70005

== ENCOUNTER 2018-02-26 05:24 | Inpatient (IN) | payer BC ==
[~2018-02-26] VITALS: Ht 149.9 cm; Wt 73.5 kg
--- NOTE | ~2018-02-26 | PATH ---
[facility] [address] [place] [address] PATHOLOGY RPT PROCEDURE Name: GLYNNANNETTE WAGNER Room #: 455-P DIS IN M.R.#: [id number] Admission: 02/26/18 Date of : 67 Discharge: 02/28/18 Report #: [id number] Path Case #: [id number] [facility] Accession Number: [id number] . 01 Material submitted: . COLOCUTANEOUS FISTULA . 01 Clinical history: . Colocutaneous fistula . 02 Diagnosis: Colocutaneous fistula, repair: - Inflamed large intestinal mucosa adjacent to reactive squamous epithelium, consistent with fistula. - Negative for malignancy. (IUV/db; 02/28/18) LBQ/02/28/2018 . 02 Electronically signed: . Anastasiia Linares MD, Pathologist NPI- [id number] . 01 Gross description: . The specimen is received in formalin, labeled "Annette Glynn, colocutaneous fistula". Received is a segment of yellow-nice fibroadipose tissue measuring 8.1 x 3.2 x 2.8 cm in greatest dimensions with an attached ellipse of pale nice, wrinkled skin measuring 7.0 x 0.9 cm. Along the deep margin there is light nice mucosa present. Within the center the mucosa there is a circular defect which probes to a depth of 1.4 cm. The specimen is submitted representatively in cassettes A1 and A2. (CAA; 02/27/2018) QAC/QAC . 02 Pathologist provided ICD-10: K63.2 . 02 CPT . 786285 Specimen Comment: A courtesy copy of this report has been sent to Specimen Comment: [phone], . Specimen Comment: Report sent to / DR VILLALBA Specimen Comment: A duplicate report has been generated due to demographic updates. Performed at: [facility], [place], [place] [id number] MD Dewey Schultz MD Phone: [phone] [address] [address] PATHOLOGY RPT PROCEDURE Name: ANNETTE GLYNN Room #: 455-P DIS IN M.R.#: [id number] Admission: 02/26/18 Date of : 67 Discharge: 02/28/18 Report #: [id number] Path Case #: [id number] Performed at: [facility] [id number] MD Anastasiia Linares MD Phone: [phone]
--- NOTE | ~2018-02-26 | O ---
[facility] [place] [address] OPERATIVE REPORT Name: ANNETTE GLYNN Room #: 455-P ADM IN M.R.#: [id number] Admission: 02/26/18 Attend Phys: Gianluca Ceja MD Discharge: Date of : 67 Report #: [id number] THIS REPORT FOR: //name// CC: Gianluca Alicia MD DATE OF SERVICE: 02/26/2018 PREOPERATIVE DIAGNOSIS: Colocutaneous fistula. POSTOPERATIVE DIAGNOSIS: Colocutaneous fistula. PROCEDURE PERFORMED: Repair of colocutaneous fistula with excision of the fistula and closure of the colotomy. SURGEON: Gianluca Ceja M.D. ANESTHESIA: General anesthesia. COMPLICATIONS: None. ESTIMATED BLOOD LOSS: 25 mL. DESCRIPTION OF PROCEDURE: With the patient under general anesthesia, IV antibiotic was administered. Timeout was performed. A 0.25% Marcaine was used to anesthetize the skin. The colocutaneous fistula is in the old scar in the right upper quadrant. Most of the scar was excised. The skin was dissected free from the fistula site. The fistula was excised with an ellipse of skin. The patient has a markedly retracted scar here. The fascia was then isolated. The fascia was incised lateral to the fistula. The fascia was opened up without difficulty. Free abdominal cavity was encountered. Cautery was used for dissecting the tissues off the fascia plus sharp dissection. The fascia opening was then enlarged. I then excised the fistula tract by cutting the fascia around the fistula. After the fistula tract was freed, the colon was able to be isolated. The colon was isolated below the fistula tract. A 3-0 Nurolon suture was placed on the superior and inferior aspect of the colon. The fistula was then excised. There was an anterior colotomy after the tract was excised. The defect measures about 3 cm. The colon was then closed. The colon was closed with 3-0 Vicryl in a running fashion incorporating part of the serosa and the mucosa. Then, 3-0 Nurolon interrupted sutures were placed in a seromuscular layer. This then closed the outer layer. The fat lateral to the colon was mobilized. The fat medial to it was also free. The omental fat was then sewn together covering the repair well. The irrigation was then performed. The fistula was repaired this way. The posterior fascia was closed with 0 PDS. The anterior fascia was closed with 0 Prolene in running fashion. Two separate [facility] [address] [place] [address] OPERATIVE REPORT Name: ANNETTE GLYNN Room #: 455-P [facility] IN .R.#: [id number] Admission: 02/26/18 Attend Phys: Gianluca Ceja MD Discharge: Date of : 67 Report #: [id number] sutures were used for the 0 Prolene stitch. Skin was closed with 4-0 PDS. Dermabond, 4 x 4, OpSite were used for dressing. The patient tolerated the procedure well. <ELECTRONICALLY SIGNED> By: Gianluca Ceja MD 02/27/18 1246 2137 2203 Gianluca Ceja MD /riky
--- NOTE | ~2018-02-26 | H ---
[facility] [place] [address] HISTORY AND PHYSICAL Name: ANNETTE GLYNN Room #: 455-P ADM IN M.R.#: [id number] Admission: 02/26/18 Attend Phys: Gianluca Ceja MD Discharge: Date of : 67 Report #: [id number] THIS REPORT FOR: //name// CC: Gianluca Alicia MD ANTICIPATED DATE OF SURGERY: 02/26/2018. PREOPERATIVE DIAGNOSIS: Colocutaneous fistula. HISTORY OF PRESENT ILLNESS: The patient is a 52-year-old who developed a colocutaneous fistula back in October. She did not do very well with TPN and only clear liquids. The patient ended up requiring an ileostomy to divert the fecal stream. She has had a small amount of mucus come out through the fistula. The fistula has closed down to a pinpoint hole. I do not think this will heal on its own. The patient is here for closure of colocutaneous fistula, which will require separation of the colon from the abdominal wall and then closure of the defect in the colon. The patient is brought in for the procedure. PAST MEDICAL HISTORY: She has a history of COPD, hypertension and DVT. MEDICATIONS: Same as last admission, except for Xarelto. ALLERGIES: SHE IS ALLERGIC TO PENICILLIN. SOCIAL HISTORY: The patient works at [employer] and she does smoke. Minimal alcohol. REVIEW OF SYSTEMS: The patient does have some cough continuously. She has had some issue with her ileostomy and prolapsing out. There is no peristomal hernia, but definitely has some trouble with the patient's exam. PHYSICAL EXAMINATION: GENERAL: She is alert and oriented. She is not in acute distress. HEENT: Pupils react to light. Extraocular muscles are intact. NECK: Soft and supple. No masses, no JVD. LUNGS: Clear. No wheezes. HEART: Regular rate and rhythm. No murmur or gallop. ABDOMEN: Soft, nondistended. She does have multiple scars identified. There is a pinpoint opening in the right upper quadrant along her incision, which is the site of the fistula. There is a pinpoint opening there. Ileostomy has had issues with prolapse and congestion, but it has been working. No mass or rigidity. No guarding. EXTREMITIES: No cyanosis, clubbing or edema. IMPRESSION: The patient is a 52-year-old with difficulty from a colocutaneous fistula. The patient did have dissection underneath the abdominal wall to get [facility] [address] [place] [address] HISTORY AND PHYSICAL Name: ANNETTE GLYNN Room #: 455-P ADM IN [facility]#: [id number] Admission: 02/26/18 Attend Phys: Gianluca Ceja MD Discharge: Date of : 67 Report #: [id number] to her gallbladder in June. I am not sure how she developed a fistula. She did not do well with conservative management. She ended up having an ileostomy. The patient is now coming in for the second part of the procedure, trying to close this fistula and keeping the bowel continued diverted until it heals and then reversing the ostomy. The patient understands the procedure and wishes to proceed. <ELECTRONICALLY SIGNED> By: Gianluca Ceja MD 02/27/18 1246 2155 2316 Gianluca Ceja MD /nt
[~2018-02-26 05:24] MED LIST changes: +XARELTO15 MG PO; +XARELTO20 MG PO
[2018-02-26 07:13] LABS: APTT 27.1 Seconds (24.5-32.8); PROTIME 9.7 Seconds (9.3-11.4)
[2018-02-26 07:48] VITALS: BP 136/72
[2018-02-26 11:51] VITALS: BP 132/80
[2018-02-26 17:41] VITALS: BP 127/73
[2018-02-26 19:34] VITALS: BP 122/73
[2018-02-27 07:45] VITALS: BP 121/63
[2018-02-27 16:30] VITALS: BP 101/50
[2018-02-27 19:56] VITALS: BP 107/50
[2018-02-28 02:24] VITALS: BP 137/73
[2018-02-28 07:13] VITALS: BP 126/70
[2018-02-28 14:51] VITALS: BP 111/57
[2018-02-28] MEDS ORDERED: HYDROCODONE-AP1 EAC6 PO (15:31)
[2018-02-28 16:27] VITALS: BP 111/57
[2018-02-28 17:13] VITALS: BP 111/57
== END 2018-02-28 17:12 | disposition home or self-care (01) | DRG 331 ==
LOC: OR 05:24 → TBA 05:24 → OR 07:44 → 4W 11:59 → OR 11:59 → ENTRNSPT 02-28 16:37 → 4W 02-28 17:12
PROVIDERS: Surgery
PROC: 0DBL0ZZ Excision of Transverse Colon, Open Approach (ICD-10-PCS; principal; 2018-02-26)
PROC: 0DQL0ZZ Repair Transverse Colon, Open Approach (ICD-10-PCS; principal; 2018-02-26)
DX: K63.2 Fistula of intestine (principal); J44.9 Chronic obstructive pulmonary disease, unspecified; I10 Essential (primary) hypertension; Z86.718 Personal history of other venous thrombosis and embolism; Z88.0 Allergy status to penicillin; Z23 Encounter for immunization; Z79.899 Other long term (current) drug therapy
CPT/HCPCS: 10047; 50010; 50101; 50386; 50417; 54118; 56524; 56525; 56526; 56528; 62110; 62900; 70005

== ENCOUNTER → 2018-03-20 | Outpatient (CLI) | payer BC | LOC: RAD 08:38 | DX: L98.8 Other specified disorders of the skin and subcutaneous tissue (principal) ==

== ENCOUNTER 2018-04-01 05:32 | Inpatient (IN) | payer BC ==
[~2018-04-01] VITALS: Ht 152.4 cm; Wt 80.1 kg
[2018-04-01] VITALS (7 sets, daily range): BP systolic 97–137; BP diastolic 53–109
--- NOTE | ~2018-04-01 | PATH ---
[facility] [address] [place] [address] PATHOLOGY RPT PROCEDURE Name: ANNETTE GLYNN Room #: 456-P DIS IN M.R.#: [id number] Admission: 04/02/18 Date of : 67 Discharge: 04/03/18 Report #: [id number] Path Case #: [id number] [facility] Accession Number: [id number] . 01 Material submitted: . ILEOSTOMY . 01 Clinical history: . Colon cutaneous fistula . 02 Diagnosis: Ileostomy, closure: - Squamous mucosa adjacent to small bowel-type mucosa with acute inflammation and ulceration, compatible with ileostomy. - Negative for dysplasia or malignancy. (IUV:supervisor; 04/03/2018) MBR/04/05/2018 . 02 Electronically signed: . Anastasiia Linares MD, Pathologist NPI- [id number] . 01 Gross description: . The specimen is received in formalin, labeled "Annette Glynn, ileostomy". Received is a segment of small bowel measuring 8.3 cm in length by 2.1 cm in diameter with a centrally located stoma displaying exposed light brown mucosa measuring 3.5 x 2.8 cm surrounded by pale nice skin. Both margins are stapled closed. The serosal surface is pink-nice appearance with moderate overlying adhesions. The attached mesenteric fat measures 1.8 cm in thickness. Opening the specimen reveals light nice mucosa with moderate architectural folding on one side of the specimen and red-nice, granular-appearing mucosa with minimal architectural folding on the opposite side. No distinct nodules or lesions are noted grossly. The specimen is submitted representatively as follows: . A1 customer care representative section from each margin A2 customer care representative section displaying light nice mucosa with moderate folding A3 customer care representative section displaying granular-appearing mucosa with minimal folding. (CAA; 04/02/2018) QAC/QAC . 02 Pathologist provided ICD-10: K52.9 . 02 CPT . [address] [address] PATHOLOGY RPT PROCEDURE Name: ANNETTE GLYNN Room #: 456-P DIS IN M.R.#: [id number] Admission: 04/02/18 Date of : 67 Discharge: 04/03/18 Report #: [id number] Path Case #: [id number] Specimen Comment: A courtesy copy of this report has been sent to Specimen Comment: [phone], . Specimen Comment: Report sent to / DR VILLALBA Specimen Comment: A duplicate report has been generated due to demographic updates. Performed at: [address], [place] [id number] MD Dewey Schultz MD Phone: [phone] Performed at: [address] [id number] MD Anastasiia Linares MD Phone: [phone]
--- NOTE | ~2018-04-01 | O ---
[facility] [place] [address] OPERATIVE REPORT Name: ANNETTE GLYNN Room #: 456-P ADM IN M.R.#: [id number] Admission: 04/02/18 Attend Phys: Gianluca Ceja MD Discharge: Date of : 67 Report #: [id number] THIS REPORT FOR: //name// CC: Gianluca Alicia MD PREOPERATIVE DIAGNOSIS: Colocutaneous fistula, status post stage repair, now here for ileostomy closure. POSTOPERATIVE DIAGNOSIS: Colocutaneous fistula, status post stage repair, now here for ileostomy closure. PROCEDURE PERFORMED: Closure of ileostomy. ANESTHESIA: General. COMPLICATIONS: None. BLOOD LOSS: 10 mL. SURGEON: Gianluca Ceja M.D. DESCRIPTION OF PROCEDURE: With the patient receiving IV antibiotic, abdomen was prepped and draped in sterile fashion. Timeout was performed. A 0.25% Marcaine was used to anesthetize the skin surrounding the ileostomy. After incising through the skin and subcutaneous tissue, the patient's ileostomy was actually fairly free from the skin and the proximal limb actually came out on its own. The distal limb had a little bit of adhesion. The patient actually developed a hernia sac. The fascia is actually pretty small. The distal limb was free from the hernia sac and fascia and isolated. At this point, I decided to go ahead and resect the ileostomy rather than closing the side wall because of the inflammation in the bowel. The small bowel proximal about 3 inches was divided with a SONNY. The bowel distally about an inch and a half was also isolated and divided. The bowel was brought together and [id number] functional end-to-end anastomosis was made. The corner of the previous staple line was trimmed. The larger side of the SONNY was placed through that. The smaller part of the SONNY was placed through the distal small bowel. The bowel had been aligned together with a 3-0 Vicryl suture. The bowel brought together. The SONNY was fired. No bleeding from the anastomosis line. Well-formed anastomosis was visualized. The enterotomy was then closed with a TA 60. This is a blue staple. The Allis clamp was placed over the enterotomy and then the TA 60 was placed underneath the enterotomy. Levine scissors were used to cut the part of the bowel distal to the staple. The mesentery was approximated with 3-0 Vicryl. I did enlarge the fascia and once I did this, I was able to return the anastomosis back intraabdominally. The hernia sac was then resected from the subcutaneous tissue all the way around. The fascia edges identified and the anterior, posterior [address] [address] OPERATIVE REPORT Name: ANNETTE GLYNN WAGNER Room #: 456-P [facility] IN M.R.#: [id number] Admission: 04/02/18 Attend Phys: Gianluca Ceja MD Discharge: Date of : 67 Report #: [id number] layer was . The irrigation was performed. The posterior layer was closed with 0 PDS in a running fashion. The anterior layer was closed with 0 Prolene in running fashion. Skin was irrigated. Skin was closed with 4-0 PDS in subcuticular fashion. Steri-Strip, 4 x 4, OpSite used for dressing. The patient tolerated the procedure well and was taken to recovery room. <ELECTRONICALLY SIGNED> By: Gianluca Ceja MD 04/03/18 1053 1645 1819 Gianluca Ceja MD /nt
[2018-04-01 12:52] LABS: HEMOGLOBIN 14.2 gm/dL (12.0-15.0)
[2018-04-01 13:05] LABS: APTT 29.3 Seconds (24.5-32.8); PROTIME 10.1 Seconds (9.3-11.4)
[2018-04-02 00:05] VITALS: BP 102/67
[2018-04-02 04:31] VITALS: BP 106/68
[2018-04-02 07:43] VITALS: BP 121/78
[2018-04-02 14:16] VITALS: BP 113/67
[2018-04-02 19:42] VITALS: BP 123/72
[2018-04-03 04:16] VITALS: BP 108/53
[2018-04-03 07:41] VITALS: BP 117/74
[2018-04-03] MEDS ORDERED: HYDROCODONE-AP1 EAC6 PO (10:46)
[2018-04-03 10:56] VITALS: BP 117/74
== END 2018-04-03 14:51 | disposition home or self-care (01) | DRG 331 ==
LOC: TBA 05:32 → OR 05:32 → 4W 17:36 → OR 04-02 16:40 → 4W 04-02 16:42
PROVIDERS: Surgery
PROC: 0DQB0ZZ Repair Ileum, Open Approach (ICD-10-PCS; principal; 2018-04-03)
DX: K63.2 Fistula of intestine (principal); Z88.0 Allergy status to penicillin
CPT/HCPCS: 10047; 50010; 50101; 50386; 50403; 51301; 51390; 51391; 51435; 56524; 56525; 56526; 62110; 62900

== ENCOUNTER → 2019-03-13 | Outpatient (CLI) | payer BC, OTHER | LOC: RAD 13:57 | DX: Z12.31 Encounter for screening mammogram for malignant neoplasm of breast (principal) ==